=== PATIENT | female | born 1965 | race African-American/Black ===

== ENCOUNTER 2017-07-14 20:25 | Emergency (ER) | payer SELFPAY ==
[~2017-07-14] VITALS: Ht 162.6 cm; Wt 63.6 kg
[~2017-07-14 20:25] MED LIST: NOHOMEMEDS
[2017-07-14 21:11] LABS: BASOPHIL (%) 0.8 % (0-1); BASOPHIL COUNT 0.1 K/uL (0-0.1); EOSINOPHIL (%) 3.8 % (0-5); EOSINOPHIL COUNT 0.2 K/uL (0-0.3); HEMATOCRIT 39.9 % (36.0-46.0); HEMOGLOBIN 13.2 G/DL (11.9-15.5); IMMATURE GRANULOCYTE (%) 0.2 % (0.0-0.7); LYMPHOCYTE (%) 44.2 % (15-42); LYMPHOCYTE COUNT 2.7 K/uL (1.0-2.8); MCH 33.8 PG (29.0-34.0); MCHC 33.1 G/DL (30.0-36.0); MONOCYTE (%) 7.8 % (3-12); MONOCYTE COUNT 0.5 K/uL (0-0.8); NEUTROPHIL (%) 43.2 % (45-76); NEUTROPHIL COUNT 2.6 K/uL (1.8-6.4); PLATELET COUNT 274 K/uL (156-360); RBC DIS.WIDTH-CV 14.4 % (11.8-14.6); RBC DIS.WIDTH-SD 54.4 % (39-53); RED BLOOD COUNT 3.91 M/uL (3.80-5.20)
[2017-07-14 21:23] LABS: CHLORIDE 108 mEq/L (99-109); POTASSIUM 3.5 mEq/L (3.7-5.4); SODIUM 144 mEq/L (136-147)
[2017-07-14 21:24] LABS: ALBUMIN 4.3 g/dL (3.2-4.8); MAGNESIUM 2.2 mg/dL (1.3-2.7)
[2017-07-14 21:26] LABS: GLUCOSE 102 mg/dL (70-99); TOTAL PROTEIN 8.1 g/dL (6.4-8.3)
[2017-07-14 21:28] LABS: TOTAL BILIRUBIN 0.2 mg/dL (0.0-1.0)
[2017-07-14 21:29] LABS: SERUM ETHYL ALCOHOL 353 mg/dL
[2017-07-14 21:30] LABS: ALKALINE PHOSPHATASE 135 IU/L (3-129); CREATININE 0.8 mg/dL (0.6-1.3); GFR ESTIMATE (CALCULATED) > 59 mL/min/
[2017-07-14 21:31] LABS: AST (GOT) 48 IU/L (2-34)
[2017-07-14 21:32] LABS: UREA NITROGEN (BUN) 11 mg/dL (9-23)
[2017-07-14 21:33] LABS: SALICYLATE < 5.0 MG/DL (15-30)
[2017-07-14 21:34] LABS: ACETAMINOPHEN (TYLENOL) < 10 mcg/mL (10-30); ALT (GPT) 25 IU/L (3-49)
[2017-07-14 21:52] VITALS: BP 139/96
== END 2017-07-14 21:53 | disposition home or self-care (01) ==
LOC: EME 20:25
PROVIDERS: Emergency Medicine
DX: R45.851 Suicidal ideations (principal); J45.909 Unspecified asthma, uncomplicated; F32.9 Major depressive disorder, single episode, unspecified; Y90.8 Blood alcohol level of 240 mg/100 ml or more
CPT/HCPCS: 80053; 81025; 83735; 85025; 99281; 99285; G0480

== ENCOUNTER 2017-11-25 10:50 | Emergency (ER) | payer SELFPAY ==
[~2017-11-25] VITALS: Ht 162.6 cm; Wt 78.0 kg
[2017-11-25 12:12] LABS: HEMATOCRIT 41.5 % (36.0-46.0); MCH 33.6 PG (29.0-34.0); MCHC 33.7 G/DL (30.0-36.0); MCV 99.5 FL (83-99); PLATELET COUNT 429 K/uL (156-360); RBC DIS.WIDTH-CV 12.6 % (11.8-14.6); RBC DIS.WIDTH-SD 46.5 % (39-53); RED BLOOD COUNT 4.17 M/uL (3.80-5.20); WHITE BLOOD COUNT 6.5 K/uL (4.1-10.2)
[2017-11-25 12:17] LABS: ALBUMIN 4.6 g/dL (3.2-4.8)
[2017-11-25 12:18] LABS: CHLORIDE 110 mEq/L (99-109); POTASSIUM 3.8 mEq/L (3.7-5.4); SODIUM 148 mEq/L (136-147)
[2017-11-25 12:20] LABS: GLUCOSE 110 mg/dL (70-99); TOTAL PROTEIN 8.8 g/dL (6.4-8.3)
[2017-11-25 12:22] LABS: TOTAL BILIRUBIN 0.3 mg/dL (0.0-1.0)
[2017-11-25 12:23] LABS: ALKALINE PHOSPHATASE 126 IU/L (3-129); SERUM ETHYL ALCOHOL 362 mg/dL
[2017-11-25 12:24] LABS: CREATININE 0.8 mg/dL (0.6-1.3); GFR ESTIMATE (CALCULATED) > 59 mL/min/
[2017-11-25 12:25] LABS: AST (GOT) 36 IU/L (2-34); UREA NITROGEN (BUN) 8 mg/dL (9-23)
[2017-11-25 12:26] LABS: ALT (GPT) 20 IU/L (3-49)
[2017-11-25 19:46] LABS: APPEARANCE CLEAR ((CLEAR)); BILIRUBIN NEGATIVE; BLOOD NEGATIVE; COLOR YELLOW ((YELLOW)); GLUCOSE (STRIP) NEGATIVE; KETONES NEGATIVE; LEUKOCYTES NEGATIVE; NITRITE NEGATIVE; PROTEIN (STRIP) NEGATIVE; UCUL ADDED? NO; UROBILINOGEN 0.2 MG/DL (0.2-1.0)
[2017-11-25 19:54] LABS: AMPHETAMINE NEGATIVE (500 ng/mL); BARBITURATES NEGATIVE (200 ng/mL); BENZODIAZEPINES PRESUMPTIVE POSITIVE (150 ng/mL); BUPRENORPHINE NEGATIVE (10 ng/mL); COCAINE NEGATIVE (150 ng/mL); METHADONE NEGATIVE (200 ng/mL); METHAMPHETAMINE NEGATIVE (500 ng/mL); OPIATES (MORPHINE) NEGATIVE (100 ng/mL); OXYCODONE NEGATIVE (100 ng/mL); PHENCYCLIDINE NEGATIVE (25 ng/mL); PROPOXYPHENE NEGATIVE (300 ng/mL); THC CANNABINOIDS NEGATIVE (50 ng/mL); TRICYCLIC ANTIDEPRESSANTS NEGATIVE (300 ng/mL)
[2017-11-25 20:38] LABS: BENZODIAZEPINES, URINE SCREEN Negative (200 ng/mL)
[2017-11-26 00:32] VITALS: BP 116/64
== END 2017-11-26 00:33 | disposition home or self-care (01) ==
LOC: EME 10:50
PROVIDERS: Emergency Medicine
DX: F32.9 Major depressive disorder, single episode, unspecified (principal); R45.851 Suicidal ideations; R45.850 Homicidal ideations; F10.229 Alcohol dependence with intoxication, unspecified; Y90.8 Blood alcohol level of 240 mg/100 ml or more
CPT/HCPCS: 80053; 81003; 84999; 85027; 90837; 99281; 99285; G0480; J1200; J1630; J2060